=== PATIENT | male | born 1960 | race Caucasian/White ===

== ENCOUNTER 2018-08-06 12:22 | Outpatient (CLI) | payer BC, OTHER ==
--- NOTE | 2018-08-06 13:20 | RAD ---
LUMBAR SPINE 3 VIEWS: Date: 08/06/18 HISTORY: Back pain. FINDINGS: There are mild degenerative changes in the lumbar spine. No fracture, subluxation, or bony destructio n is identified. IMPRESSION: Lumbar spondylosis. POS: [facility]
== END 2018-08-06 12:23 | disposition home or self-care (01) ==
LOC: NAV RAD 12:22
PROVIDERS: ATTEND Family Medicine
DX: M54.5 Low back pain (principal); M47.816 Spondylosis without myelopathy or radiculopathy, lumbar region
CPT/HCPCS: 72100